=== PATIENT | male | born 1955 | race Caucasian/White ===

== ENCOUNTER 2018-04-08 05:33 | Inpatient (IN) | payer BC, OTHER ==
[2018-03-22 08:45] LABS: HEMOGLOBIN 15.6 gm/dL (14.0-18.0); MCH 31.6 pg (26.0-34.0); MCHC 34.8 g/dL (28.0-37.0); MCV 90.8 fL (80.0-100.0); RBC 4.95 mil/uL (4.50-6.00); RDW 12.9 % (10.5-14.5); WBC 6.8 thou/uL (4.0-11.0)
[2018-03-22 08:48] LABS: URINE BILIRUBIN NEGATIVE (Negative); URINE BLOOD NEGATIVE (Negative); URINE CLARITY CLEAR; URINE COLOR YELLOW; URINE GLUCOSE-RANDOM* NEGATIVE (Negative); URINE KETONES NEGATIVE (Negative); URINE LEUKOCYTES-REFLEX NEGATIVE (Negative); URINE NITRITE-REFLEX NEGATIVE (Negative); URINE PROTEIN (DIPSTICK) NEGATIVE (Negative); URINE SPECIFIC GRAVITY >= 1.030 (1.005-1.035); URINE UROBILINOGEN 0.2 E.U./dl (0.2-1.0)
[2018-03-22 08:54] LABS: ALBUMIN 4.2 g/dL (3.4-5.0); CALCIUM 8.9 mg/dL (8.5-10.1); CREATININE 1.1 mg/dL (0.7-1.3); POTASSIUM 4.1 mmol/L (3.5-5.1)
[2018-03-22 08:58] LABS: PROTIME 10.2 Seconds (9.3-11.4)
[~2018-04-08] VITALS: Ht 167.6 cm; Wt 77.8 kg
--- NOTE | ~2018-04-08 | O ---
[facility] [place] [address] OPERATIVE REPORT Name: GAVIN BUTTS Room #: 150-1 ADM IN M.R.#: [id number] Admission: 04/08/18 Attend Phys: Abad Benitez MD Discharge: Date of : 51 Report #: [id number] THIS REPORT FOR: //name// CC: GAY JARVIS Physician staff Abad Benitez DATE OF SERVICE: 04/08/2018 PREOPERATIVE DIAGNOSIS: Left knee osteoarthritis. POSTOPERATIVE DIAGNOSIS: Left knee osteoarthritis. PROCEDURE: Left total knee arthroplasty using Navio robotic assistance. SURGEON: Abad Benitez MD. PLATFORM SOFTWARE ENGINEER: Felisha Garcia PA-C. INDICATIONS FOR PLATFORM SOFTWARE ENGINEER: Throughout the case, extensive retraction and manipulation of the knee was required. This was afforded to me by my assistant operator. ANESTHESIA: LMA with an adductor canal block. IMPLANTS: [employer] size 6 Legion Oxinium posterior stabilized femur, size 6 tibia, size 11 polyethylene and size 35 patella. TOURNIQUET TIME: 68 minutes. ESTIMATED BLOOD LOSS: 25 mL. COMPLICATIONS: None. SPECIMENS: None. CONDITION UPON LEAVING THE OPERATING ROOM: Stable. INDICATION FOR PROCEDURE: The patient is a 62-year-old gentleman with severe left knee osteoarthritis. He had failed conservative measures for this and after discussion with him, he elected for left total knee arthroplasty. DESCRIPTION OF PROCEDURE: Risks, benefits, alternatives, complications were discussed in detail with the patient including but not limited to risk of anesthesia, risk of damage to nerves, arteries, blood vessels, risk for infection, bleeding, risk for continued knee pain and need for reoperation. Informed consent was obtained from the patient. Left knee was appropriately [facility] [address] [place] [address] OPERATIVE REPORT Name: GAVIN BUTTS Room #: 150-1 ADM IN M.R.#: [id number] Admission: 04/08/18 Attend Phys: Abad Benitez MD Discharge: Date of : 51 Report #: [id number] marked in the preoperative holding area. IV Ancef was given for preoperative antibiotics. Adductor canal block was placed by Anesthesia. He was brought to the operating room and placed in supine position on the operating room table. LMA anesthesia was induced without complication. Tourniquet was placed on the left thigh. Left lower extremity was prepped and draped in normal sterile fashion. Timeout was performed properly identifying the patient and procedure as well as instrumentation. All in the operating room were in agreement. Left lower extremity was exsanguinated, tourniquet was inflated. Tourniquet time was 68 minutes. Standard midline approach to knee was made with 10 blade through the skin. Dissection was taken down sharply to the fascia and deep flaps were developed medially and laterally. Fresh 10 blade was used to make a medial parapatellar arthrotomy, and the patella was everted. Anterior horns of meniscus were removed sharply. ACL and PCL were removed sharply. Reference pins were then placed in the femur and tibia, and the knee was then mapped out using a Navio system. Intraoperative was made and the femur was sized to be a 6, the tibia was a 6. The distal femoral cut was then made using the Navio rah. 4-in-1 size 6 cutting block was placed. Anterior, posterior and chamfer cuts were made. After this, attention was turned to the tibia. Tibial resection guide was pinned in place using Navio assistant operator device. After this, the flexion and extension gaps were checked and found to have good balance in flexion and extension medially and laterally. Tibia was sized, found to be a size 6. Size 6 tibial trial was placed, size 6 femoral trial was placed and box cut was made. This was trialed with a size 10 polyethylene. Knee was taken through range of motion, found to be stable, found to have good balance in flexion and extension. He has about 2 mm of laxity medially and laterally using the Navio system, and it was felt that probably a size 11 would be the final implant. 9 mm was taken off the posterior surface of the patella, and a size 35 patellar trial button was placed. Knee was taken through range of motion, found to be stable, found to have good balance in flexion and extension and good patellar tracking. After this, trial components were removed. Bony ends were thoroughly irrigated with normal saline. A final size 6 tibia, size 6 Legion Oxinium posterior stabilized femur and a size 35 patella were cemented in place using standard cementation techniques. While the cement cured, a periarticular injection consisting of morphine, ropivacaine, epinephrine and Toradol was placed around the knee joint tissues. After the cement cured, tourniquet was deflated. Hemostasis was obtained with Bovie cautery. A final size 11 polyethylene was placed. A gram of vancomycin was placed deep in the knee joint. The fascia was closed with 0 Vicryl, skin was closed with 2-0 Vicryl, 3-0 Monocryl. Dermabond and TASH dressing were applied. The patient tolerated this procedure well and went to the recovery room under the care of Anesthesia postoperatively. By: 0947 [id number] Abad Benitez MD /nt
--- NOTE | ~2018-04-08 | EKG ---
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
[~2018-04-08 05:33] MED LIST: ASPIR 8181 MG PO; BIOTIN800 MCG PO; CENTRUM SILVER1 EAC2 PO; COLLAGEN PO; COZAAR 50 MG TA50 M2 PO; FISH OIL 1,001000 M2 PO; GLUCOSAMINE CH1 EAC2 PO; HYALURONIC ACI1 EACH PO; MAGOX 400400 MG PO; MELATONIN5 M1 PO; PRAVACHOL40 MG PO; PROTONIX 20 MG20 M1 PO; RANITIDINE 150150 M1 PO; VIAGRA50 MG PO; VITAMIN B-12500 MCG PO; VITAMINC500 PO; [UNRECOGNIZED DRUG - OTHER] SUBQ
[2018-04-08 06:31] VITALS: BP 137/82
[2018-04-08 12:30] VITALS: BP 137/86
[2018-04-08 20:24] VITALS: BP 132/75
[2018-04-09 05:54] VITALS: BP 102/55
[2018-04-09 05:57] LABS: HEMOGLOBIN 11.2 gm/dL (14.0-18.0); MCH 31.1 pg (26.0-34.0); MCHC 33.8 g/dL (28.0-37.0); MCV 91.9 fL (80.0-100.0); RBC 3.59 mil/uL (4.50-6.00); RDW 13.2 % (10.5-14.5); WBC 11.9 thou/uL (4.0-11.0)
[2018-04-09 08:20] VITALS: BP 105/70
[2018-04-09 16:15] VITALS: BP 118/62
[2018-04-09 16:56] VITALS: BP 118/62
== END 2018-04-09 19:00 | disposition home or self-care (01) | DRG 470 ==
LOC: 4W 05:33 → TBA 05:33 → PRE 05:42 → 4W 12:22 → PRE 13:06 → ENTRNSPT 04-09 18:49 → 4W 04-09 19:00
PROVIDERS: Orthopaedic Surgery
PROC: 0SRD0J9 Replacement of Left Knee Joint with Synthetic Substitute, Cemented, Open Approach (ICD-10-PCS; principal; 2018-04-08)
DX: M17.12 Unilateral primary osteoarthritis, left knee (principal); Z79.82 Long term (current) use of aspirin; Z79.899 Other long term (current) drug therapy
CPT/HCPCS: 10047; 50010; 50101; 50415; 50954; 51130; 51225; 51771; 53000; 53078; 53365; 54118; 56527; 56528; 57095; 57103; 57109; 57110; 57113; 57127; 62110; 62900; 64039; 70005